=== PATIENT | male | born 1970 | race Caucasian/White ===

== ENCOUNTER 2023-02-25 00:53 | Observation (INO) | payer MEDICARE, MEDICAID ==
[2023-02-25] MEDS ORDERED: Ondansetron 4 MG/2 ML SDV IVPUSH ONE ×2 (01:13→02:40)
[2023-02-25] MEDS ORDERED: Sodium Chloride 0.9% 1,000 ML IV ONE (01:13)
[2023-02-25 01:54] LABS: BASOPHILS PERCENT AUTO 0.1 % (0.2-1.2); EOSINOPHILS PERCENT AUTO 0.1 % (0.0-4.0); HEMATOCRIT 34.5 % (40.0-52.0); HEMOGLOBIN 12.4 g/dL (14.0-18.0); IMMATURE GRAN ABSOLUTE AUTO 0.06 x10^3/uL (0.00-0.07); LYMPHOCYTES ABSOLUTE AUTO 0.7 x10^3/uL (1.0-4.8); LYMPHOCYTES PERCENT AUTO 5.2 % (25.0-50.0); MEAN CORPUSCULAR HEMOGLOBIN 30.5 pg (26.0-32.0); MEAN CORPUSCULAR HGB CONC 35.9 g/dL (32.0-36.0); MEAN CORPUSCULAR VOLUME 84.8 fL (78.0-93.0); MONOCYTES ABSOLUTE AUTO 0.5 x10^3/uL (0.0-0.8); MONOCYTES PERCENT AUTO 3.4 % (2.0-11.0); NEUTROPHILS ABSOLUTE AUTO 12.3 x10^3/uL (1.8-7.7); NEUTROPHILS PERCENT AUTO 90.8 % (50.0-80.0); PLATELET COUNT,PLT 157 x10^3/uL (130-400); RED BLOOD CELL COUNT 4.07 x10^6/uL (4.5-6.0); WHITE BLOOD CELL COUNT,WBC 13.5 x10^3/uL (4.0-10.0)
[2023-02-25 02:17] LABS: A/G RATIO 0.78; ALANINE AMINOTRANSFERASE,ALT 162 U/L (16-63); ALBUMIN 3.5 g/dL (3.4-5.0); ALKALINE PHOSPHATASE 194 U/L (46-116); ANION GAP 30.4 mmol/L (5-15); ASPARTATE AMNIOTRANSFERASE,AST 161 U/L (15-37); BILIRUBIN TOTAL 2.3 mg/dL (0.2-1.0); BLOOD UREA NITROGEN,BUN 44 mg/dL (7-18); C-REACTIVE PROTEIN 0.94 mg/dL (<=0.30); CALCIUM 8.5 mg/dL (8.5-10.1); CARBON DIOXIDE,CO2 15 mmol/L (21-32); CHLORIDE,CL 83 mmol/L (98-107); CREATININE 1.3 mg/dL (0.70-1.30); EST CRCL DRUG DOSING (CG) 67.85 mL/min; GLUCOSE RANDOM 295 mg/dL (70-99); LIPASE 45 U/L (19-71); POTASSIUM,K 4.4 mmol/L (3.5-5.1)
[2023-02-25 02:21] LABS: ESTIMATED GFR 66 mL/min (>=60)
[2023-02-25 02:22] LABS: SODIUM,NA 124 mmol/L (136-145)
[2023-02-25 02:28] LABS: ETHANOL BLOOD MEDICAL < 3 mg/dL (0-3)
[2023-02-25] MEDS ORDERED: LORazepam 2 MG/ML SDV IVPUSH ONE (02:40)
[2023-02-25] MEDS ORDERED: Flumazenil 0.1 MG/ML 5 ML MDV IVPUSH PRN ×2 (02:40→02:41)
[2023-02-25] MEDS ORDERED: Acetaminophen 325 MG Tab PO PRN ×2 (02:41→06:57)
[2023-02-25] MEDS ORDERED: LORazepam 2 MG/ML SDV IVPUSH PRN (02:41)
[2023-02-25] MEDS ORDERED: Ondansetron 4 MG/2 ML SDV IV PRN (02:41)
[2023-02-25] MEDS: Sodium Chloride 0.9% 1,000 ML IV SCH ×2 (03:01→09:58)
[2023-02-25] MEDS ORDERED: Menthol 10%/Methyl Salicylate 15% 85 GM Tube TOP PRN ×2 (06:57→07:16)
[2023-02-25] MEDS ORDERED: INSULIN GLARGINE HUM REC ANLOG SQ SCH (07:00)
[2023-02-25] MEDS ORDERED: [UNRECOGNIZED DRUG - OTHER] SQ SCH (07:00)
[2023-02-25 07:07] LABS: BASOPHILS PERCENT AUTO 0.2 % (0.2-1.2); HEMATOCRIT 30.9 % (40.0-52.0); HEMOGLOBIN 11.2 g/dL (14.0-18.0); IMMATURE GRAN ABSOLUTE AUTO 0.04 x10^3/uL (0.00-0.07); LYMPHOCYTES ABSOLUTE AUTO 1.2 x10^3/uL (1.0-4.8); LYMPHOCYTES PERCENT AUTO 12.2 % (25.0-50.0); MEAN CORPUSCULAR HEMOGLOBIN 30.7 pg (26.0-32.0); MEAN CORPUSCULAR HGB CONC 36.2 g/dL (32.0-36.0); MEAN CORPUSCULAR VOLUME 84.7 fL (78.0-93.0); MONOCYTES ABSOLUTE AUTO 0.5 x10^3/uL (0.0-0.8); MONOCYTES PERCENT AUTO 5.3 % (2.0-11.0); NEUTROPHILS ABSOLUTE AUTO 7.7 x10^3/uL (1.8-7.7); NEUTROPHILS PERCENT AUTO 81.9 % (50.0-80.0); PLATELET COUNT,PLT 123 x10^3/uL (130-400); RED BLOOD CELL COUNT 3.65 x10^6/uL (4.5-6.0); WHITE BLOOD CELL COUNT,WBC 9.4 x10^3/uL (4.0-10.0)
[2023-02-25] MEDS ORDERED: Levothyroxine 150 MCG Tab PO SCH (07:30)
[2023-02-25 07:38] LABS: A/G RATIO 0.75; ANION GAP 26.2 mmol/L (5-15); BILIRUBIN TOTAL 1.9 mg/dL (0.2-1.0); CALCIUM 8.1 mg/dL (8.5-10.1); CREATININE 1.1 mg/dL (0.70-1.30); EST CRCL DRUG DOSING (CG) 80.19 mL/min; POTASSIUM,K 4.2 mmol/L (3.5-5.1)
[2023-02-25] MEDS: Insulin Lispro 100 Units/ML 3 ML Vial SUBCUT SCH ×2 (07:44→11:33)
[2023-02-25] MEDS ORDERED: Iopamidol 612 MG/ML 100 ML Bottle IVPUSH ONE (08:05)
[2023-02-25] MEDS: Acetaminophen/HYDROcodone 325-10 MG Tab PO SCH ×3 (08:24→17:06)
[2023-02-25] MEDS: Gabapentin 300 MG Cap PO SCH ×3 (08:24→17:05)
[2023-02-25] MEDS ORDERED: Insulin Glarg,Human.Rec.Analog 100 Unit/ML 10 ML Vial SUBCUT SCH (09:00)
[2023-02-25] MEDS ORDERED: Hydrocortisone 2.5% Crm 30 GM Tube TOP SCH (09:00)
[2023-02-25] MEDS ORDERED: Propranolol 60 MG Cap.ER PO SCH (09:00)
[2023-02-25] MEDS ORDERED: Lisinopril 20 MG Tab PO SCH (09:00)
[2023-02-25] MEDS ORDERED: Hydrochlorothiazide 12.5 MG Cap PO SCH (09:00)
[2023-02-25] MEDS ORDERED: Psyllium 0.52 GM Cap PO SCH (09:00)
== END 2023-02-25 17:15 | disposition short-term general hospital (02) ==
LOC: EDBD → VM.ED 00:53 → MERGE 02:25 → VM.MS 02:25
PROVIDERS: ADMIT Physician Assistant Medical; ATTEND Nurse Practitioner Family
DX: K70.9 Alcoholic liver disease, unspecified (principal); E87.1 Hypo-osmolality and hyponatremia; I10 Essential (primary) hypertension; E10.40 Type 1 diabetes mellitus with diabetic neuropathy, unspecified; E03.9 Hypothyroidism, unspecified; K21.9 Gastro-esophageal reflux disease without esophagitis; F10.10 Alcohol abuse, uncomplicated; Z87.891 Personal history of nicotine dependence; Z89.512 Acquired absence of left leg below knee; Z79.890 Hormone replacement therapy; Z79.1 Long term (current) use of non-steroidal anti-inflammatories (NSAID); Z79.899 Other long term (current) drug therapy; Z88.5 Allergy status to narcotic agent; Y90.0 Blood alcohol level of less than 20 mg/100 ml
CPT/HCPCS: 36415; 74178; 80053; 80307; 82947; 83690; 85025; 86140; A9270; J1815; J2060; J2405; J7030; Q9967